=== PATIENT | female | born 1995 | race Caucasian/White ===

== ENCOUNTER 2016-05-28 16:32 | Emergency (ER) | payer SELFPAY ==
[2016-05-28 17:23] VITALS: BP 157/88
[2016-05-28] MEDS ORDERED: ALBUTEROL SULFATE/IPRATROPIUM 3 ML NEBU IH ONE ×2 (18:33→18:55)
[2016-05-28] MEDS ORDERED: METHYLPREDNISOLONE SOD SUCC/PF 125 MG/2 ML VIAL IM ONE (18:33)
[2016-05-28] MEDS ORDERED: CODEINE PHOSPHATE/GUAIFENESIN 5 ML UDC PO ONE (18:33)
--- NOTE | 2016-05-28 18:41 | ERNOTE ---
Date of Service: 05/28/16 Time Seen by Provider: 05/28/16 18:27 Stated Complaint: COLD Presenting Symptoms:: cough, other - sore throat Source: patient Exam Limitations: no limitations Immunizations: IMMUNIZATION HX Immunizations Up to Date Yes History of Influenza Vaccine No Hx Pneumococcal Vaccination No Allergies/Adverse Reactions: Allergies No Known Allergies Allergy (Verified 10/24/15 17:48) Home Medications: HOME MEDICATIONS Albuterol Sulfate [Proair Respiclick] 90 mcg IH Q6H #1 aer.pow.ba 05/28/16 [ Last Taken Unknown] guaiFENesin/DEXTROMETHORPHAN [Robitussin-Dm] 10 ml PO Q6H #1 btl 05/28/16 [Last Taken Unknown] predniSONE [Prednisone] 20 mg PO DAILY #5 tablet 05/28/16 [Last Taken Unknown] - History of Present Ilness Narrative: Patient comes due to dry coughing, sore throat, general malaise, and weakness since 3 days. 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 Timing: intermittent Severity: moderate Frequency/Possible Cause: Reports: other - Works at a [employer]. Denies: exercise, illness exposure, irritant gases exposure, smoke exposure, foreign travel, out of med Modifying Factors - Worsens: Denies: antibiotics Associated Symptoms: Reports: cough - dry, nasal congestion, sore throat, muscle aches, fever/chills. Denies: shortness of breath, earache Prior Treatment: Denies: recently seen Review of Systems - Review of Systems Constitutional: Present: fever, chills, weakness, malaise EYE: Present: no symptoms reported ENT: Present: sore throat Respiratory: Present: cough - dry. Absent: shortness of breath, orthopnea, wheezing Cardiology: Present: no symptoms reported Gastrointestinal/Abdominal: Present: no symptoms reported Genitourinary: Present: no symptoms reported Musculoskeletal: Present: no symptoms reported Skin: Present: no symptoms reported Neurological: Present: no symptoms reported Endocrine: Present: no symptoms reported Hematologic/Lymphatic: Present: no symptoms reported Psych: Present: no symptoms reported All Other Systems: All systems neg except as marked - Patient's Past Medical History Patient History - Medical: Obesity Patient History - Cardiac/Respiratory: No pertinent hx Patient History - Cancer: No Hx of Cancer Patient History - Surgical Procedures: No surgical history Patient History - Other: None LMP (females 10-50): last week LMP (Calendar): 09/15/15 - Family History Mother Family History - Medical: Other - Social History Living Situations: significant other Psych History: No pertinent hx Smoking Status: Current every day smoker Have you smoked in the past 12 months: Yes Do you dip or chew tobacco: No Alcohol Use: none Drug Use: none - Immunizations Immunizations Up to Date: Yes Hx Pneumococcal Vaccination: No History of Influenza Vaccine: No Physical Exam - Physical Exam General Appearance: Present: wd/wn, alert, no apparent distress Eye Exam: Normal inspection: bilateral Ears, Nose, Throat: Present: pharyngeal erythema - mild, pharyngeal swelling - mild. Absent: tonsillar swelling Neck: Present: normal inspection, nontender. Absent: carotid bruit Respiratory: Present: no respiratory distress, normal breath sounds, no accessory muscle use, chest nontender, lungs clear, expiration (prolonged) Cardiovascular/Chest: Present: regular rate, rhythm, no murmur, normal peripheral pulses. Absent: JVD Gastrointestinal/Abdominal: Present: normal bowel sounds, nontender, nondistended, soft Back Exam: Present: normal inspection, no CVA tenderness Extremity Exam: Present: normal inspection, normal range of motion Neurological Exam: Present: alert, oriented, normal mood/affect, no motor/ sensory deficits Skin Exam: Present: normal color, warm/dry. Absent: skin rash Lymphatic Exam: Present: no adenopathy ED Progress - Date and Time Seen: Date and Time: 05/28/16 19:10 Patient with no distress. Patient will be given Tx and will be discharge home. Patient will need to follow up with her PCP. - Results and Orders Patient's Lab Results:: I have reviewed the patient's lab results. Results and Orders: Influenza: Negative - Vital Signs Patient's Vital Signs:: I have reviewed the patient's vital signs. Vital Signs: Vital Signs 05/28/16 17:12 Temperature 37.5 C Pulse Rate 113 H Respiratory 22 H Rate Blood Pressure 157/88 O2 Sat by Pulse 95 Oximetry - Progress/Reassessment Chief Complaint: Cough Progress:: Improved - Transfer of Care Expected Disposition: Discharge Departure - Departure Clinical Impression: Upper respiratory infection, viral Disposition: Home self-care Condition: Stable Instructions: Upper Respiratory Infection, Adult, [id number], Form - Excuse from Work, School, or Physical Activity Additional Instructions: Please follow with your Primary Care Provider. Prescriptions: Albuterol Sulfate [Proair Respiclick] 90 mcg IH Q6H #1 aer.pow.ba guaiFENesin/DEXTROMETHORPHAN [Robitussin-Dm] 10 ml PO Q6H #1 btl predniSONE [Prednisone] 20 mg PO DAILY #5 tablet
[2016-05-28] MEDS ORDERED: METHYLPREDNISOLONE SOD SUCC/PF 125 MG/2 ML VIAL ONE (18:55)
[2016-05-28] MEDS ORDERED: CODEINE PHOSPHATE/GUAIFENESIN 5 ML UDC ONE (18:55)
--- OUTSIDE RECORDS SUMMARY | 2016-05-28 19:14 | XMS REPORT | Continuity of Care Document ---
:1995 Author Organization [facility] ([facility]) [place] [address] Phone [phone] Care Team Providers Name Role Phone Adair Rogers Primary Care Provider [phone] Source Comments This disclosure is being made pursuant to the Care Everywhere program, applicable federal and state laws, and may not contain all informaitonavailable regarding this patient.[facility] ([facility]) Active Allergies and Adverse Reactions No Known Allergies Current Medications No known medications Active Problems Problem Noted Date Morbid obesity 11/05/2015 Social History Tobacco Use Types Packs/Day Years Used Date Current Every Day Smoker Cigarettes 0.5 5 Smokeless Tobacco: Never Used Alcohol Use Drinks/Week oz/Week Comments No Last Filed Vital Signs Vital Sign Reading Time Taken Blood Pressure 140/66 11/21/2015 11:13 AM CDT Pulse 90 11/21/2015 11:13 AM CDT Temperature 37.2 C (99 F) 11/21/2015 11:13 AM CDT Respiratory Rate 18 11/05/2015 11:19 AM CDT Height 1.702 m (5' 7.01") 11/05/2015 11:19 AM CDT Weight 149.65 kg (329 lb 14.7 oz) 11/21/2015 11:13 AM CDT Body Mass Index 51.66 11/21/2015 11:13 AM CDT Oxygen Saturation 95% 11/05/2015 6:30 PM CDT Plan of Care Health Maintenance Due Date Last Done Comments Hepatitis B Vaccine (1 of 3 - Primary Series) 1993 HPV Vaccine (1 of 3 - Female/Unknown 3 Dose Series) 2004 Tdap Vaccine 2004 Cervical Cancer Screening 10/10/2011 Lipid Disorder Screening 10/10/2011 MMR Vaccine 10/10/2011 Td Vaccine 10/10/2011 Varicella Vaccine (1 of 2 - Adult - No Evidence of 10/10/2011 Immunity) Pneumococcal Vaccine (1 of 1 - PPSV23) 2012 Influenza Vaccine: Seasonal (#1) 10/28/2015 Results from Last 3 Months Not on file
== END 2016-05-28 20:04 | disposition home or self-care (01) ==
LOC: ER 16:32
DX: J06.9 Acute upper respiratory infection, unspecified (principal); Z72.0 Tobacco use